=== PATIENT | male | born 1980 | race Caucasian/White ===

== ENCOUNTER 2016-10-03 10:20 | Emergency (ER) | payer SELFPAY ==
[2016-10-03 10:41] VITALS: BP 140/87
--- NOTE | 2016-10-03 11:31 | CR ---
Chest 2V HISTORY: chest pressure. COMPARISON: None FINDINGS: Lungs appear clear and normally aerated. Cardiomediastinal silhouette is within normal limits. No va scular redistribution or pleural fluid can be seen. Bony structures and soft tissues are unremarkabl e. IMPRESSION: No acute chest abnormality identified.
--- NOTE | 2016-10-03 11:57 | EDM.PDOC ---
ED HPI GENERAL MEDICAL PROBLEM - General Chief Complaint: Chest Pain Stated Complaint: CHEST PRESSURE/BREATHING ISSUES Time Seen by Provider: 10/03/16 10:40 Source of Information: Reports: Patient History Limitations: Reports: No Limitations - History of Present Illness INITIAL COMMENTS - FREE TEXT/NARRATIVE: pt arrived with chest pressure and a sensation of sob. H states he has not been whezy. He had a cough but only clear mucous. 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 Onset: Today Duration: Hour(s):, Other (Pt has chest pressure. ) Associated Symptoms: Reports: Shortness of Breath, Other ( chest pressure. ) Chest Pain Score (Numeric/FACES): 2 - Related Data Allergies Allergy/AdvReac Type Severity Reaction Status Date / Time No Known Allergies Allergy Verified 10/03/16 10:41 Home Meds: Home Meds NK [No Known Home Meds] 10/03/16 [History] Past Medical History Respiratory History: Reports: Bronchitis, Recurrent Musculoskeletal History: Reports: Fracture Neurological History: Reports: Concussion Psychiatric History: Reports: Suicide Attempt, Suicidal Ideation - Past Surgical History Musculoskeletal Surgical History: Reports: Other (See Below) Other Musculoskeletal Surgeries/Procedures:: surgical repair for laceration on fingers. Social & Family History - Tobacco Use Smoking Status *Q: Heavy Tobacco Smoker Years of Tobacco use: 18 Packs/Tins Daily: 1 - Recreational Drug Use Recreational Drug Use: No ED ROS GENERAL - Review of Systems Review Of Systems: See Below Constitutional: Reports: No Symptoms HEENT: Reports: No Symptoms Respiratory: Reports: Shortness of Breath, Other ( chest pressure) Cardiovascular: Reports: Other ( chest pressure) Endocrine: Reports: No Symptoms GI/Abdominal: Reports: No Symptoms : Reports: No Symptoms Musculoskeletal: Reports: No Symptoms Skin: Reports: No Symptoms Neurological: Reports: No Symptoms ED EXAM, GENERAL - Physical Exam Exam: See Below Free Text/Narrative:: pt arived with chest pressure and a feeling of sob. He has no history of cardiac problems. He Has just taken a new job in a wellness spa manager position and he has just moved to a new community. He hs 3 children and feels like he has no time for himself. Exam Limited By: No Limitations General Appearance: Alert, Anxious, Mild Distress Ears: Normal TMs Nose: Normal Inspection Throat/Mouth: Normal Inspection Head: Atraumatic Neck: Normal Inspection Respiratory/Chest: No Respiratory Distress, Other (pt has o2 sats in the 97 range. ) Cardiovascular: Regular Rate, Rhythm GI/Abdominal: Soft, Non-Tender (Male) Exam: Deferred Rectal (Males) Exam: Deferred Back Exam: Normal Inspection Extremities: Normal Inspection, Other ( no swelling. ) Neurological: Alert, Oriented Course - Vital Signs Last Recorded V/S: Last Vital Signs Temp 36.3 C 10/03/16 10:39 Pulse 83 10/03/16 10:39 Resp 16 10/03/16 10:39 BP 140/87 10/03/16 10:39 Pulse Ox 96 10/03/16 10:39 - Orders/Labs/Meds Orders: Active Orders 24 hr Category Date Time Status EKG Documentation Completion [RC] ASDIRECTED Care 10/03/16 10:26 Active EKG 12 Lead [EK] Routine Ther 10/03/16 10:26 Ordered Labs: Laboratory Tests 10/03/16 10/03/16 10/03/16 Range/Units 11:01 11:01 11:01 WBC 5.6 (4.5-11.0) K/uL RBC 5.30 (4.30-5.90) M/uL Hgb 16.6 H (12.0-15.0) g/dL Hct 47.2 (40.0-54.0) % MCV 89 (80-98) fL MCH 31 (27-31) pg MCHC 35 (32-36) % Plt Count 194 (150-400) K/uL Neut % (Auto) 52 (36-66) % Lymph % (Auto) 36 (24-44) % [place] % (Auto) 8 H (2-6) % Eos % (Auto) 4 (2-4) % Baso % (Auto) 1 (0-1) % Sodium 140 (140-148) mmol/L Potassium 4.1 (3.6-5.2) mmol/L Chloride 104 (100-108) mmol/L Carbon Dioxide 30 (21-32) mmol/L Anion Gap 6.4 (5.0-14.0) mmol/L BUN 12 (7-18) mg/dL Creatinine 1.0 (0.8-1.3) mg/dL Est Cr Clr Drug Dosing 113.17 mL/min Estimated GFR (MDRD) > 60 (>60) Glucose 96 (74-106) mg/dL Calcium 8.8 (8.5-10.1) mg/dL Total Bilirubin 1.2 H (0.2-1.0) mg/dL AST 12 L (15-37) U/L ALT 21 (12-78) U/L Alkaline Phosphatase 37 L (46-116) U/L Troponin I < 0.017 (0.000-0.056) ng/mL Total Protein 6.8 (6.4-8.2) g/dL Albumin 4.0 (3.4-5.0) g/dL Globulin 2.8 (2.3-3.5) g/dL Albumin/Globulin Ratio 1.4 (1.2-2.2) - Re-Assessments/Exams Free Text/Narrative Re-Assessment/Exam: 10/03/16 11:59 chest xray was neg, lab work looked good. trop was neg nd ekg was normal. Departure - Departure Time of Disposition: 12:00 Disposition: Home, Self-Care 01 Condition: Fair Clinical Impression: Sensation of chest tightness due to arthritis, Stress and adjustment reaction Forms: ED Department Discharge Care Plan Goals: reassurance, taking time for himself to relax rtc if further symptoms. - My Orders Last 24 Hours: My Active Orders 10/03/16 10:26 EKG Documentation Completion [RC] ASDIRECTED EKG 12 Lead [EK] Routine - Assessment/Plan Last 24 Hours: My Active Orders 10/03/16 10:26 EKG Documentation Completion [RC] ASDIRECTED EKG 12 Lead [EK] Routine
== END 2016-10-03 12:09 | disposition home or self-care (01) ==
LOC: JP.ED 10:20
DX: R07.89 Other chest pain (principal); F43.29 Adjustment disorder with other symptoms; F17.210 Nicotine dependence, cigarettes, uncomplicated
CPT/HCPCS: 36415; 71020; 71020-26; 80053; 84484; 85025; 93005; 93010; 99282; 99285-25